=== PATIENT | female | born 1980 | race Native Hawaiian/Other Pacific Islander ===

== ENCOUNTER 2017-03-28 17:16 | Emergency (ER) | payer BC ==
[2017-03-28] MEDS ORDERED: AMOXICILLIN TR/POT CLAVULANATE 500-125 MG TAB PO ONE (19:41)
[2017-03-28] MEDS ORDERED: DIPH/PERTUSS(ACELL)/TETANUS VAC/PF 0.5 ML SYR (>=10YO) IM ONE (19:41)
--- NOTE | 2017-03-28 19:43 | ER Document Report ---
HPI - HPI Patient complains to provider of: dog bite Pain Level: 3 Context: Patient is a 36-year-old female presents emergency department complaining of a dog bite of her right hand. Patient states that it was her dog but her last evening. He is vaccinated. Her tetanus is not up-to-date. She states that there is 1 puncture on the dorsal aspect of her right hand. She is cleaned out multiple times but came in due to the swelling. She denies any fevers or chills. Denies any decreased range of motion in her hand, sensation is intact. Denies any allergies to medication - CARDIOVASCULAR Cardiovascular: DENIES: Chest pain - DERM Skin Color: Normal Past Medical History - Social History Smoking Status: Current Some Day Smoker Frequency of alcohol use: None Drug Abuse: None Family History: Reviewed & Not Pertinent Patient has suicidal ideation: No Patient has homicidal ideation: No Renal/ Medical History: Denies: Hx Peritoneal Dialysis Surgical Hx: Negative Past Surgical History: Reports: Hx Gynecologic Surgery - Ovarian cysts, LEEP - Immunizations Hx Diphtheria, Pertussis, Tetanus Vaccination: No - unsure Vertical Provider Document - CONSTITUTIONAL Agree With Documented VS: Yes Exam Limitations: No Limitations General Appearance: WD/WN, No Apparent Distress - INFECTION CONTROL TRAVEL OUTSIDE OF THE [place] IN LAST 30 DAYS: No - RESPIRATORY O2 Sat by Pulse Oximetry: 98 - CARDIOVASCULAR Pulses: Normal: Radial - MUSCULOSKELETAL/EXTREMETIES Musculoskeletal/Extremeties: MAEW, FROM, Non-Tender, No Edema - NEURO Level of Consciousness: Awake, Alert, Appropriate Motor/Sensory: No Motor Deficit, No Sensory Deficit - DERM Integumentary: Warm, Dry, No Rash Notes: Evidence of one puncture any dorsal aspect of the right hand that is nontender to palpation. Minimal evidence of surrounding swelling but no evidence of erythema, induration. No evidence of drainage. Course - Re-evaluation Re-evalutation: 03/28/17 20:46 Patient initiated on Augmentin, tetanus status updated. Patient been irrigated in Betadine saline bath. Dressed with dry sterile dressing. Discussed signs and symptoms for patient to be aware of the return to emergency department. - Vital Signs Vital signs: Temp Pulse Resp BP Pulse Ox 99.1 F 67 16 145/80 H 98 03/28/17 17:22 03/28/17 17:22 03/28/17 17:22 03/28/17 17:22 03/28/17 17:22 Discharge - Discharge Clinical Impression: Dog bite Condition: Good Disposition: HOME, SELF-CARE Instructions: Animal Bites ([facility]) Prescriptions: Amox Tr/Potassium Clavulanate [Augmentin 875-125 Tablet] 1 tab PO BID 10 Days Forms: Return to Work Referrals: SUMMER FULTON DO [Primary Care Provider] - Follow up as needed
[2017-03-28 20:02] VITALS: BP 140/89
== END 2017-03-28 20:41 | disposition home or self-care (01) ==
LOC: ER 17:16
DX: S61.451A Open bite of right hand, initial encounter (principal); W54.0XXA Bitten by dog, initial encounter; F17.200 Nicotine dependence, unspecified, uncomplicated
CPT/HCPCS: 90471; 90715; 99283